=== PATIENT | male | born 1935 | race Caucasian/White ===

== ENCOUNTER → 2023-04-26 | Outpatient (CLI) | payer OTHER ==
[~2023-04-26] MED LIST: BARIUM for suspension 96% w/w (Vanilla Silq Medium Density) PO ONE; BARIUM for suspension 98% w/w (Vanilla Silq High Density) PO ONE
--- NOTE | 2023-04-26 11:40 | Diagnostic Imaging Report ---
INDICATION: Epigastric pain. Patient ingested effervescent crystals as well as thin and thick barium and imaging of the esophagus was performed in multiple obliquities. A total of 27 seconds of fluoroscopic time was utilized. Reference air kerma is 28.5 mGy. 45 images were obtained. Preliminary radiograph of the chest does show some calcified plaques in the right lower pleura. Lungs are clear. There is no effusion. The esophagus has a smooth contour. No mass or strictures identified. There are occasional tertiary contractions. There is a small sliding-type hiatal hernia. No gastroesophageal reflux was demonstrated. IMPRESSION: Small hiatal hernia. The study is otherwise unremarkable. Dictated by: Dictated on workstation # [id number]
== END ==
LOC: RAD 10:00
PROVIDERS: ATTEND Surgery
DX: K44.9 Diaphragmatic hernia without obstruction or gangrene (principal)
CPT/HCPCS: 74220

== ENCOUNTER 2023-05-05 05:51 | Outpatient (CLI) | payer OTHER ==
[~2023-05-05] VITALS: Ht 175.3 cm; Wt 80.3 kg
[2023-05-12] MEDS ORDERED: CHOL-34 PO (10:56)
[2023-05-12] MEDS ORDERED: HYDR25TA4 PO (10:56)
[2023-05-12] MEDS ORDERED: LISI40TA9 PO (10:56)
[2023-05-12] MEDS ORDERED: SIMV40TA25 PO (10:56)
[2023-05-12] MEDS ORDERED: CARV25TA PO (10:56)
[2023-05-12] MEDS ORDERED: AMLO-251 PO (10:56)
[2023-05-12] MEDS ORDERED: CETI10TA17 PO (10:56)
[2023-05-12] MEDS ORDERED: METF-397 PO (10:56)
[2023-05-12] MEDS ORDERED: TIOT18CA7 IH (11:03)
[2023-05-12] MEDS ORDERED: BUDE10.27 IH (11:03)
[2023-05-12] MEDS ORDERED: EMPA25TA PO (11:03)
[2023-05-12] MEDS ORDERED: ALLO300T2 PO (11:03)
[2023-05-12] MEDS ORDERED: MULT-1056 PO (11:04)
[2023-05-19] MEDS ORDERED: SUCR1TAB36 PO (11:41)
[2023-05-19] MEDS ORDERED: ONDA4TAB11 SL (11:41)
== END 2023-05-12 11:06 | disposition home or self-care (01) ==
LOC: PREOP 05:51
PROVIDERS: ATTEND Surgery
DX: Z01.818 Encounter for other preprocedural examination (principal)